=== PATIENT | female | born 1945 ===

== ENCOUNTER 2018-03-16 13:19 | Emergency (ER) | payer OTHER ==
--- NOTE | 2018-03-16 14:24 | ED ---
HPI Febrile Illness - HPI Summary HPI Summary: Patient is a 2-year-old female who is otherwise healthy presenting to the ED 40 after colonoscopy with a low-grade temperature at home 2 days. Her colonoscopy was Sunday (4 days ago) and states she felt fine the following day. She developed a fever that evening which improved with Tylenol and ibuprofen at home. The following day she developed a fever again and again took Tylenol and ibuprofen with good relief. Family members at bedside stating they were concerned that this may be due to the colonoscopy. History of hypertension and takes Losartan. She denies any abdominal pain, nausea, vomiting, back pain, urinary symptoms or constipation. She does endorse looser stools since the colonoscopy. She denies any body aches. She is currently being treated for shingles x 15 days with a topical cream. No oral medications were given. - History of Current Complaint Chief Complaint: EDFever Time Seen by Provider: 03/16/18 13:25 Hx Obtained From: Patient Onset/Duration: Started Hours Ago Timing: Constant Initial Severity: Mild Current Severity: Mild Pain Intensity: 0 Pain Scale Used: 0-10 Numeric Aggravating Factors: Nothing Alleviating Factors: Nothing Associated Signs and Symptoms: Negative - Risk Factors Pseudomonas Risk Factors: Negative Serious Bacterial Infection Risk Factors: Negative - Allergy/Home Medications Allergies/Adverse Reactions: Allergies Allergy/AdvReac Type Severity Reaction Status Date / Time Sulfa (Sulfonamide Allergy Rash Verified 03/16/18 13:34 Antibiotics) Home Medications: Home Medications Alendronate Sodium 70 mg PO WEEKLY 03/16/18 [History Confirmed 03/16/18] Ibuprofen TAB* [Motrin TAB* 600 MG] 600 mg PO SEE INSTRUCTIONS PRN 03/16/18 [ History Confirmed 03/16/18] Losartan Potassium 25 mg PO DAILY 03/16/18 [History Confirmed 03/16/18] PMH/Surg Hx/FS Hx/Imm Hx Previously Healthy: Yes Endocrine/Hematology History: Denies: Hx Diabetes Cardiovascular History: Reports: Hx Hypertension Denies: Hx Pacemaker/ICD History: Denies: Hx Renal Disease Sensory History: Reports: Hx Hearing Aid Psychiatric History: Denies: Hx Panic Disorder - Surgical History Surgery Procedure, Year, and Place: 1998 [facility] NO METAL - Immunization History Hx Pertussis Vaccination: No Immunizations Up to Date: Yes Infectious Disease History: No Infectious Disease History: Denies: Traveled Outside the [place] in Last 30 Days - Social History Occupation: Unemployed Lives: Alone Alcohol Use: None Hx Substance Use: No Substance Use Type: Reports: None Hx Tobacco Use: No Smoking Status (MU): Never Smoked Tobacco Review of Systems Positive: Fever. Negative: Chills, Fatigue, Skin Diaphoresis Negative: Palpitations, Chest Pain Negative: Shortness Of Breath, Cough Negative: Abdominal Pain, Vomiting, Diarrhea, Nausea Genitourinary: Negative Positive: no symptoms reported, see HPI Negative: Rash, Bruising Neurological: Negative All Other Systems Reviewed And Are Negative: Yes Physical Exam Triage Information Reviewed: Yes Vital Signs On Initial Exam: Initial Vitals Temp Pulse Resp BP Pulse Ox 98.7 F 87 17 112/70 95 03/16/18 13:29 03/16/18 13:29 03/16/18 13:29 03/16/18 13:29 03/16/18 13:29 Vital Signs Reviewed: Yes Appearance: Positive: Well-Appearing, Well-Nourished Skin: Positive: Warm, Skin Color Reflects Adequate Perfusion Head/Face: Positive: Normal Head/Face Inspection Eyes: Positive: EOMI, KENNY, Conjunctiva Clear Neck: Positive: Supple, No Lymphadenopathy Respiratory/Lung Sounds: Positive: Clear to Auscultation, Breath Sounds Present Cardiovascular: Positive: RRR, Pulses are Symmetrical in both Upper and Lower Extremities. Negative: Leg Edema Left, Leg Edema Right Abdomen Description: Positive: Nontender, No Organomegaly, Soft. Negative: CVA Tenderness (R), CVA Tenderness (L), Distended, Guarding, McBurney's Point Tenderness, Splenomegaly Musculoskeletal: Positive: Normal, Strength/ROM Intact Neurological: Positive: Sensory/Motor Intact, Alert, Oriented to Person Place, Time, Speech Normal Diagnostics - Vital Signs Vital Signs Temp Pulse Resp BP Pulse Ox 03/16/18 14:00 84 96 03/16/18 13:45 84 117/70 95 03/16/18 13:44 89 95 03/16/18 13:29 98.7 F 87 17 112/70 95 - Laboratory Result Diagrams: 03/16/18 14:38 03/16/18 14:38 Lab Statement: Any lab studies that have been ordered have been reviewed, and results considered in the medical decision making process. Course/Dx - Course Course Of Treatment: During the course of treatment, the patient is evaluated for fever 2 days. Denies any abdominal pain, diarrhea, constipation, nausea, vomiting, back pain or urinary symptoms. Denies any chest pain or shortness of breath. Patient states she has been feeling otherwise well, however has been being treated for shingles with a topical cream 2 weeks. She also had a colonoscopy 4 days ago and was concerned that this may be because of fever. Fever improves after approximately 2 hours after taking [id number] antipyretics. She is afebrile on arrival. She states she has not taken any antipyretic for 4-6 hours. She's been using Tylenol and ibuprofen with good relief. Family is at bedside. Patient is nontoxic in appearing, moist mucous membranes, lungs CTA, RRR, no abdominal tenderness throughout with light and deep palpation. Negative Chowdhury sign. No tenderness at McBurney's point. Negative psoas and negative obturator. Patient denies any abdominal surgeries. She continues to take losartan, but denies any other medications. Labs obtained and are unremarkable. UA obtained and is also unremarkable. Discussed case with the patient as well as family member. She states she feels well and continues to remain afebrile. She will be discharged at home at this time, however with strict return precautions. Return precautions include fever with accompanying abdominal pain, or constipation. She is also to follow up with her PCP in 2 days for a recheck. - Febrile Illness Differential Diagnoses: Fever of Unknown Origin - Diagnoses Provider Diagnoses: Fever Discharge - Sign-Out/Discharge Documenting (check all that apply): Patient Departure - Discharge Plan Condition: Stable Disposition: HOME Patient Education Materials: Fever in Adults (ED) Referrals: Annabelle Jackson MD [Primary Care Provider] - Additional Instructions: If you develop any fevers associated with abdominal pain, return to the ED immediately For any continuing fevers at home, he may take Tylenol and ibuprofen, use intermittently every 3 hours Drink plenty of fluids - Billing Disposition and Condition Condition: STABLE Disposition: Home
[2018-03-16 14:35] LABS: Urine Appearance Clear; Urine Blood 1+ (Negative); Urine Color Straw; Urine Ketones Negative (Negative); Urine Protein Negative (Negative); Urine Red Blood Cell Trace(0-2/hpf) (Absent); Urine Specific Gravity 1.004 (1.010-1.030); Urine Urobilinogen Negative (Negative); Urine White Blood Cell Trace(0-5/hpf) (Absent)
[2018-03-16 15:06] LABS: ABS Basophils 0.1 10^3/ul (0-0.2); ABS Eosinophils 0.1 10^3/ul (0-0.6); ABS Lymphocytes 2.4 10^3/ul (1.0-4.8); ABS Monocytes 0.7 10^3/ul (0-0.8); ABS Neutrophils 4.2 10^3/ul (1.5-7.7); ABS Nucleated RBC 0 10^3/ul; Hematocrit 33 % (35-47); Lymphocyte % 32.1 % (25-47); Mean Corpuscular HGB Conc 34 g/dl (31-36); Mean Corpuscular Hemoglobin 30 pg (27-31); Mean Corpuscular Volume 89 fL (80-97); Mean Platelet Volume 7.4 fL (7.4-10.4); Nucleated Red Blood Cells % 0.1; Platelet Count 224 10^3/ul (150-450); Red Blood Count 3.72 10^6/ul (4.00-5.40); Red Cell Distribution Width 13 % (10.5-15); White Blood Count 7.5 10^3/ul (3.5-10.8)
[2018-03-16 15:36] LABS: EGFR Non-African American 77.1 (>60)
[2018-03-16 17:07] VITALS: BP 127/76
== END 2018-03-16 17:05 | disposition home or self-care (01) ==
LOC: ED 13:19
DX: R50.9 Fever, unspecified (principal); B02.9 Zoster without complications; I10 Essential (primary) hypertension; Z88.2 Allergy status to sulfonamides
CPT/HCPCS: 36415; 80053; 81003; 81015; 83605; 83690; 83735; 85025; 86140; 87086; 99282